=== PATIENT | male | born 1985 | race Caucasian/White ===

== ENCOUNTER 2016-07-07 08:54 | Emergency (ER) | payer SELFPAY ==
[2016-07-07 09:46] VITALS: BP 134/83
--- NOTE | 2016-07-07 11:08 | UC ---
Laceration HPI - HPI Summary HPI Summary: AT WORK TODAY CUTTING A HOSE WITH A KNIFE. HAND SLIPPED AND PT LACERATED LEFT INDEX FINGER LATERAL ASPECT OVERLYING PIP JOINT. CLEANED IT OUT IMMEDIATELY. EDGES ARE WELL APPROXIMATED. NO ACTIVE BLEEDING. LAST TETANUS BOOSTER 3 YEARS AGO. - History Of Current Complaint Chief Complaint: UCLaceration Stated Complaint: FINGER LAC Time Seen by Provider: 07/07/16 10:31 Hx Obtained From: Patient Laceration Location: Finger - LEFT INDEX Mechanism Of Injury: Sharp Trauma Onset/Duration: Sudden Onset, Lasting Hours, Still Present Severity: Mild Pain Intensity: 2 Pain Scale Used: 0-10 Numeric Aggravating Factors: Nothing Related History: Dominant Hand Right - Allergies/Home Medications Allergies/Adverse Reactions: Allergies Allergy/AdvReac Type Severity Reaction Status Date / Time Amoxicillin [From Augmentin] Allergy Vomiting Verified 07/07/16 09:40 Clavulanic Acid Allergy Vomiting Verified 07/07/16 09:40 [From Augmentin] Home Medications: Home Medications Albuterol Sulfate [Proventil Hfa] 2 puff PO PRN 07/07/16 [History] Montelukast Sodium TAB* [Singulair 10 MG TAB*] 10 mg PO DAILY 07/07/16 [History Confirmed 07/07/16] PMH/Surg Hx/FS Hx/Imm Hx Endocrine History Of: Denies: Diabetes, Thyroid Disease Cardiovascular History Of: Denies: Cardiac Disorders, Hypertension Respiratory History Of: Reports: Asthma Denies: COPD GI/ History Of: Denies: Ulcer - Surgical History Surgical History: Yes Surgery Procedure, Year, and Place: hernia - Family History Known Family History: Positive: Hypertension - Social History Alcohol Use: None Substance Use Type: None Smoking Status (MU): Never Smoked Tobacco Review of Systems Constitutional: Negative Skin: Other - LACERATION Respiratory: Negative Cardiovascular: Negative Gastrointestinal: Negative All Other Systems Reviewed And Are Negative: Yes Physical Exam Triage Information Reviewed: Yes Appearance: Well-Appearing, No Pain Distress, Well-Nourished Vital Signs: Initial Vital Signs Temp 98.7 F 07/07/16 09:42 Pulse 83 07/07/16 09:42 Resp 16 07/07/16 09:42 BP 134/83 07/07/16 09:42 Pulse Ox 98 07/07/16 09:42 Vital Signs Reviewed: Yes Eyes: Positive: Conjunctiva Clear ENT: Positive: Hearing grossly normal Neck: Positive: Supple Respiratory: Positive: No respiratory distress, No accessory muscle use Cardiovascular: Positive: Pulses Normal Abdomen Description: Positive: Soft Musculoskeletal: Positive: ROM Intact, No Edema Neurological: Positive: Alert Psychological: Positive: Age Appropriate Behavior Skin: Positive: Other - 12MM LINEAR LACERATION LATERAL ASPECT LEFT INDEX FINGER OVERLYING PIP JOINT. SKIN EDGES WELL APPROXIMATED. NO ACTIVE BLEEDING Laceration Repair - Laceration Repair 1 Description: Linear Laceration Size After Repair: Length (cm) - 1.2CM, Width (mm) - 0MM, Depth (mm) - 2MM Modified For Repair: No Irrigation With Pressure Irrigation Device: Yes Closure Material: Skin Adhesive, SteriStrips Laceration Course/Dx - Differential Dx - Laceration/Wound Provider Diagnoses: LACERATION REPAIR LEFT INDEX FINGER Discharge - Discharge Plan Condition: Stable Disposition: HOME Patient Education Materials: Finger Laceration (ED) Referrals: No Primary Care Phys,NOPCP [Primary Care Provider] - Additional Instructions: LEAVE TUBE GAUZE ON UNTIL TOMORROW. THE STERI STRIPS WILL FALL OFF ON THEIR OWN WITHIN 1 -2 WEEKS. DO NO SUBMERGE IN WATER FOR PROLONGED PERIOD OF TIME. OKAY FOR QUICK SHOWER. NO OINTMENT OR BANDAGES ON TOP. USE THE SPLINT TO KEEP YOUR FINGER STRAIGHT FOR THE FIRST SEVERAL DAYS. SEEK FOLLOW-UP IF YOU DEVELOP SPREADING REDNESS OF THE SKIN, PURULENT DRAINAGE, FEVER, INCREASED PAIN OR ANY OTHER CONCERNING SYMPTOMS. FOLLOW-UP WITH YOUR PCP AT [facility] IF NEEDED.
== END 2016-07-07 11:40 | disposition home or self-care (01) ==
LOC: UCEAST 08:54
DX: S61.211A Laceration without foreign body of left index finger without damage to nail, initial encounter (principal); W26.0XXA Contact with knife, initial encounter; Y93.89 Activity, other specified; Y92.9 Unspecified place or not applicable; Y99.0 Civilian activity done for income or pay; J45.909 Unspecified asthma, uncomplicated; Z88.1 Allergy status to other antibiotic agents
CPT/HCPCS: 12001; 99201; G0463